=== PATIENT | female | born 1990 | race Caucasian/White ===

== ENCOUNTER 2018-01-06 07:18 | Inpatient (IN) | payer OTHER ==
[2018-01-06] MEDS ORDERED: Tranexamic Acid 1,000 MG in Sodium Chloride 0.9% 100 ML IV PRN (07:58)
[2018-01-06] MEDS ORDERED: Methylergonovine 0.2 MG/1 ML Amp IM PRN (07:58)
[2018-01-06] MEDS ORDERED: Carboprost Tromethamine 250 MCG/1 ML Amp IM PRN (07:58)
[2018-01-06] MEDS ORDERED: Sodium Chloride 0.9% 10 ML Syringe FLUSH PRN (07:58)
[2018-01-06] MEDS ORDERED: Misoprostol 400 MCG (4 X 100 MCG TAB) RECTAL PRN (07:58)
[2018-01-06] MEDS ORDERED: Lactated Ringers 500 ML IV ONE (07:58)
[2018-01-06] MEDS ORDERED: Lidocaine 1% 30 ML SDV INJECT PRN (07:58)
[2018-01-06] MEDS ORDERED: Ondansetron 4 MG/2 ML SDV IV PRN (07:58)
[2018-01-06] MEDS ORDERED: Acetaminophen 325 MG Tab PO PRN (07:58)
[2018-01-06] MEDS ORDERED: Sodium Chloride 0.9% 10 ML SDV IV ONE (08:00)
[2018-01-06] MEDS ORDERED: Bupivacaine 0.75%/D5W 2 ML Amp ONE ×2 (08:00→09:03)
[2018-01-06] MEDS ORDERED: fentaNYL 100 MCG/2 ML SDV ITHECAL ONE (08:00)
[2018-01-06] MEDS ORDERED: Penicillin G Potassium 5 MILLUNITS in Sodium Chloride 0.9% 100 ML IV ONE (08:25)
[2018-01-06] MEDS ORDERED: fentaNYL 100 MCG/2 ML SDV ONE (09:03)
[2018-01-06] MEDS ORDERED: EPINEPHrine 1 MG/ML SDV ONE (09:03)
[2018-01-06] MEDS: Lactated Ringers 1,000 ML IV SCH ×3 (09:22→11:13)
[2018-01-06] MEDS ORDERED: ePHEDrine 50 MG/ML SDV ONE (09:23)
[2018-01-06] MEDS ORDERED: ePHEDrine 50 MG/ML SDV IVPUSH PRN (09:25)
[2018-01-06] MEDS ORDERED: Promethazine 25 MG/ML SDV IM PRN (09:25)
[2018-01-06] MEDS ORDERED: Naloxone 2 MG/2 ML Syringe IVPUSH PRN (09:25)
[2018-01-06] MEDS ORDERED: Ondansetron 4 MG/2 ML SDV IVPUSH PRN (09:25)
[2018-01-06] MEDS ORDERED: Sodium Chloride 0.9% 1,000 ML IV SCH (09:30)
[2018-01-06] MEDS ORDERED: Lactated Ringers 500 ML IV SCH ×2 (09:30)
--- NOTE | 2018-01-06 09:33 | PCM.SN ---
- Free Text/Narrative Note: Intrathecal. sitting position, sterile prep and drape. 1% lidocaine w bicarb for skinwheal to L2 L3 interspace. Introducer, 24 ga pencan x1. Pos CSF, neg heme, neg parasthesia. 0.1 ml 1:1000 pf epi, 0.4 ml pf ns, 20 mcg pf sufenta, 30 mcg pf fentanyl and 6 mg of 0.75% pf bupivacaine injected after CSF aspiration. Pt to L lateral position. Procedure time 0905 to 0953
[2018-01-06] MEDS: Penicillin G Potassium 2.5 MILLUNITS in Sodium Chloride 0.9% 100 ML IV SCH (12:20)
--- NOTE | 2018-01-06 14:44 | HP ---
CHIEF COMPLAINT: "I think my water broke." HISTORY OF PRESENT ILLNESS: A 27-year-old G2, para 0-0-1-0, currently at 38 weeks 1 day gestation based on last menstrual period, presents to Labor and Delivery. At 6:50 a.m., she felt she had peed her pants and had some mild cramping at that time. Small amount of pink discharge on her pad. At this time of interview, she feels like her contractions are getting stronger and locates this pain to the front of her abdomen and "all over." She is feeling pelvic pressure. Denies nausea, headaches, vision changes, right upper quadrant pain, or itching. movement has been good. The patient plans on breast feeding. HISTORY: The patient started care at approximately [address] Julia Reyes and had been very compliant with her visits. Dating is based on definite last menstrual period consistent with an ultrasound done at 20 and 2/7 weeks. Blood type is O positive. Antibody screen is negative. Serial hemoglobin of 14.7, 13.1. Serial platelet counts 187, 166. Rubella immune. RPR nonreactive. Group B streptococcal bacteriuria during . Hepatitis B surface antigen nonreactive. HIV nonreactive. TSH within normal limits. One hour glucose screen is not on record. Flu shot was given in June 2017. Tdap was given on October 18, 2017. complication of visit to the ER due to feeling lightheaded and weak. She had a 24-hour Holter monitor ordered after finding an incomplete right bundle branch block on EKG in the emergency room. She has not had any syncopal episodes since July 02, 2017. PAST OBSTETRICAL HISTORY: First resulted in a spontaneous in January of 2017. No D and C. [place], [place]. PAST MEDICAL HISTORY: None. MEDICATIONS: 1. vitamins. 2. Iron. ALLERGIES: None. PAST SURGICAL HISTORY: Right bunionectomy in 2014. FAMILY HISTORY: Mother is alive, no known conditions. Father is alive, no known medical conditions. Maternal grandparents with cardiovascular disease. Paternal grandparents living with no known medical conditions. SOCIAL HISTORY: to Santos Juares. They live in [place], [place]. 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 This is their first child together. IMMUNIZATIONS: Including flu shot and Tdap. History of chickenpox. REVIEW OF SYSTEMS: Unremarkable. No visual changes or headache. No nausea or vomiting. There is significant edema of hands and feet. No right upper quadrant pain. She feels her baby has been active. She has had no bleeding from the vagina. She has had no syncopal episodes or palpitations. PHYSICAL EXAMINATION: General: The patient looks well and is in no acute distress. Able to walk and ambulate around the room comfortably. Vital Signs: On admission, blood pressure 119/81; respiratory rate of 16 on room air; pulse of 95; temperature Height 5 ft 6 in, Weight 156 lb HEENT: Atraumatic and normocephalic. Mucosal membranes are moist. Lungs: Clear to auscultation bilaterally. Heart: Regular rate and rhythm. S1 and S2. Abdomen: Gravid. Cervix, 4 cm dilated, 60% effaced with vaginal fluid leakage, bleeding after removing hand from cervical exam. LABORATORY DATA: Pending at this time. Nonstress test on arrival shows baseline of 140 with accelerations noted. Contractions appearing approximately 5 minutes apart IMPRESSION: 1. A 27-year-old 2, para 0-0-1-0, at 38 and 1/7 weeks gestation. 2. O positive blood type. Rubella immune. GBS positive for bacteria. 3. Nonstress test reactive. PLAN: The patient will be admitted with routine labor augmentation orders. We will continue to observe the patient closely, possible addition of Pitocin for augmentation of labor. The patient is planning on intrathecal for pain management. Anticipate likely vaginal delivery. The patient understands that complications may arise to change course of labor to involve vacuum- assisted delivery or section. Questions answered. [facility] /[id number] CYNTHIA
[2018-01-06] MEDS ORDERED: Ibuprofen 800 MG Tab ONE (21:50)
[2018-01-06] MEDS ORDERED: Docusate Sodium 100 MG Cap ONE (21:50)
[2018-01-07] MEDS: Penicillin G Potassium 2.5 MILLUNITS in Sodium Chloride 0.9% 100 ML IV SCH ×4 (03:20→19:58)
[2018-01-07] MEDS ORDERED: Acetaminophen 500 MG Tab PO PRN (09:04)
[2018-01-07] MEDS ORDERED: Zolpidem 5 MG Tab PO PRN (09:06)
[2018-01-07] MEDS ORDERED: Bisacodyl 10 MG Supp RECTAL PRN (09:07)
[2018-01-07] MEDS ORDERED: Hydrocortisone 2.5% Crm 30 GM Tube TOP PRN (09:08)
[2018-01-07] MEDS ORDERED: Ondansetron 4 MG/2 ML SDV IV PRN (09:09)
--- NOTE | 2018-01-07 09:52 | PN ---
DATE: 01/07/2018 SUBJECTIVE: Day #1 for a vacuum-assisted vaginal delivery. Mother states she is feeling well. She is ambulating in the room in the hallways and is tolerating a normal diet. She has had a bowel movement and is passing gas. She is but is concerned that her milk is not coming in, and she is not able to produce enough. She has been supplementing her breast-feeds with syringe formula feedings and states those have been going well. Longest time on breast is 10 minutes. She has occasional cramps while . Lochia has decreased in amount. Denies headache, nausea, vision changes, shortness of breath, or back pain. OBJECTIVE: Vital Signs: Temperature 98.2, pulse of 64, blood pressure of 95/62, and respirations 16 with 98% saturation on room air. HEENT: Head normocephalic and atraumatic. Mucosal membranes moist. Lungs: Clear to auscultation bilaterally. No wheeze or rhonchi. Cardiac: Heart is S1, S2. Regular rate and rhythm. No murmur. Abdomen: Soft with normoactive bowel sounds in the upper quadrants. Fundus is firm at umbilicus. LABORATORY DATA: None for today. ASSESSMENT: 1. A 27-year-old G2, now para 1-0-1-1, who is 1 day of vacuum- assisted vaginal delivery over an intact perineum. 2. O positive blood type. Rubella immune. Group B streptococcus positive for bacteria. 3. The patient is . PLAN: Continue routine cares. Expecting discharge home tomorrow. Followup will be with Dr. Reyes in clinic, exact date and times to follow. [facility] /[id number]
[2018-01-07] MEDS: Ibuprofen 600 MG Tab PO SCH ×4 (10:24→22:36)
[2018-01-07] MEDS: Prenatal Multivitamin with Calcium/Folic Acid/Iron Tab PO SCH (10:24)
[2018-01-07] MEDS: Docusate Sodium 100 MG Cap PO SCH ×2 (10:25→20:56)
[2018-01-08] MEDS: Ibuprofen 600 MG Tab PO SCH (08:19)
[2018-01-08] MEDS: Docusate Sodium 100 MG Cap PO SCH (08:20)
[2018-01-08] MEDS: Prenatal Multivitamin with Calcium/Folic Acid/Iron Tab PO SCH (08:20)
--- NOTE | 2018-01-08 23:59 | PCM.DCSUM1 ---
Discharge Summary - Hospital Course Free Text/Narrative:: Bertha is a 27yo WF who presented @ 38w1d with SROM and onset cxns. GBS bacturia was known and PCN started for prophylaxis. she progressed in labor and subsequently delivered a viable female wieghing 6lb 3oz 2810g @ 1455 on 01-06-18by VAVD with APGARs 6 & 9. HPI Initial Comments: after her VAVD, the course was uneventful. VSS afebrile. bowel and bladder function ok. eating, ambulating, voiding well. nursing. fundus firm. flow decreasing. ready for discharge 01-08-18 hmb Brief History: see episode and problem list in EPIC. hmb - Discharge Data Discharge Date: 01/08/18 Discharge Disposition: Home, Self-Care 01 Condition: Good - Discharge Diagnosis/Problem(s) (1) Vacuum extraction, delivered, current hospitalization SNOMED Code(s): 461979228 ICD Code: O66.5 - ATTEMPTED APPLICATION OF VACUUM EXTRACTOR AND FORCEPS Status: Acute (2) Group B streptococcal bacteriuria SNOMED Code(s): 47262379 ICD Code: R82.71 - BACTERIURIA Status: Acute Problem Details: Group B strep bacturia. Penicillin prophylaxis in labor provided. (3) Blood type O+ SNOMED Code(s): 995343303 ICD Code: Z67.40 - TYPE O BLOOD, RH POSITIVE Status: Acute (4) Mother currently breast-feeding SNOMED Code(s): 032742188 ICD Code: YED2641 - Status: Acute - Patient Summary/Data Operative Procedure(s) Performed: VAVD Hospital Course: uneventful course as discussed/noted. hmb - Patient Instructions Diet: Usual Diet as Tolerated Activity: No Strenuous Activities Driving: May Drive Today Showering/Bathing: May Shower Wound/Incision Care: Keep Operative Site/Wound Site Clean and Dry Notify Provider of: Fever, Increased Pain, Swelling and Redness, Nausea and/or Vomiting - Discharge Plan Patient Handouts: Baby Blues, Care After Vaginal Delivery - Discharge Summary/Plan Comment DC Time >30 min.: No - General Info Date of Service: 01/08/18 Admission Dx/Problem (Free Text: 38w1d 27yo WF with onset labor and SROM GBS + bacturia---on PCN A+ blood type Rubella immune Subjective Update: SROM, onset cxns, primip, 38w1d. GBS bacturia, started on PCN prophylaxis see EPIC episode for further details. Admitted and proceeded to VAVD viable 6lb 3oz female without complication see delivery note for details. course uneventful Afebrile, VSS flow decreasing, fundus firm nursing eating, voiding ambulating well. ready for discharge 01-08-18 hmb Functional Status: Reports: Pain Controlled, Tolerating Diet, Ambulating, Urinating - Review of Systems General: Reports: No Symptoms HEENT: Reports: No Symptoms Pulmonary: Reports: No Symptoms Cardiovascular: Reports: No Symptoms Gastrointestinal: Reports: No Symptoms Genitourinary: Reports: Other (normal status) Musculoskeletal: Reports: No Symptoms Skin: Reports: No Symptoms Neurological: Reports: No Symptoms Psychiatric: Reports: No Symptoms - Patient Data Vitals - Most Recent: Last Vital Signs Temp 97.8 F 01/08/18 08:00 Pulse 57 L 01/07/18 20:00 Resp 20 01/08/18 08:00 BP 99/55 L 01/08/18 08:00 Pulse Ox 97 01/08/18 08:00 Weight - Most Recent: 156 lb I&O - Last 24 hours: Intake & Output 01/08/18 01/08/18 01/09/18 14:59 22:59 06:59 Intake Total 600 Balance 600 Lab Results - Last 24 hrs: Laboratory Results - last 24 hr 01/08/18 Range/Units 06:14 Hgb 12.4 D (12.0-16.0) g/dL Hct 37.2 (37.0-47.0) % Med Orders - Current: Current Medications Discontinued Medications Acetaminophen (Tylenol) 650 mg PO Q4H PRN PRN Reason: Pain (Mild 1-3) and fever Last Admin: 01/07/18 08:22 Dose: 650 mg Acetaminophen (Tylenol Extra Strength) 1,000 mg PO Q8H PRN PRN Reason: Pain/Fever Last Admin: 01/07/18 15:58 Dose: 1,000 mg Bisacodyl (Dulcolax) 10 mg RECTAL ASDIRECTED PRN PRN Reason: CONSTIPATION Bupivacaine HCl/Dextrose (Marcaine 0.75% Spinal) Confirm Administered Dose 2 ml .ROUTE .STK-MED ONE Stop: 01/06/18 09:04 Last Admin: 01/07/18 03:20 Dose: Not Given Bupivacaine HCl/Dextrose (Marcaine 0.75% Spinal) 0.8 ml .XX .STK-MED ONE Stop: 01/06/18 08:01 Carboprost Tromethamine (Hemabate Ds) 250 mcg IM ASDIRECTED PRN PRN Reason: HEMORRHAGE Docusate Sodium (Colace) Confirm Administered Dose 100 mg .ROUTE .STK-MED ONE Stop: 01/06/18 21:51 Last Admin: 01/07/18 03:21 Dose: Not Given Docusate Sodium (Colace) 100 mg PO BID [facility] Last Admin: 01/08/18 08:20 Dose: 100 mg Ephedrine Sulfate (Ephedrine Sulfate) Confirm Administered Dose 50 mg .ROUTE .STK-MED ONE Stop: 01/06/18 09:24 Last Admin: 01/07/18 03:20 Dose: Not Given Ephedrine Sulfate (Ephedrine Sulfate) 5 mg IVPUSH Q5M PRN PRN Reason: See Label Comments Epinephrine HCl (Adrenalin) Confirm Administered Dose 1 mg .ROUTE .STK-MED ONE Stop: 01/06/18 09:04 Last Admin: 01/07/18 03:20 Dose: Not Given Famotidine (Pepcid) 20 mg IVPUSH ONETIME ONE Stop: 01/06/18 10:58 Last Admin: 01/06/18 11:05 Dose: 20 mg Fentanyl (Sublimaze) Confirm Administered Dose 100 mcg .ROUTE .STK-MED ONE Stop: 01/06/18 09:04 Last Admin: 01/07/18 03:20 Dose: Not Given Fentanyl (Sublimaze) 30 mcg ITHECAL .STK-MED ONE Stop: 01/06/18 08:01 Hydrocortisone (Hydrocortisone 2.5% Crm) 0 gm TOP ASDIRECTED PRN PRN Reason: HEMORRHOIDS Lactated Ringer's (Ringers, Lactated) 500 mls @ 999 mls/min IV .BOLUS ONE Stop: 01/06/18 07:59 Last Admin: 01/06/18 08:50 Dose: 999 mls/min Lactated Ringer's (Ringers, Lactated) 1,000 mls @ 125 mls/hr IV ASDIRECTED YADIRA Last Admin: 01/06/18 11:13 Dose: 125 mls/hr Tranexamic Acid 1,000 mg/ (Sodium Chloride) 110 mls @ 660 mls/hr IV ONETIME PRN PRN Reason: Bleeding Penicillin G Potassium 5 (millunits/ Sodium Chloride) 100 mls @ 200 mls/hr IV ONETIME ONE Stop: 01/06/18 08:54 Last Admin: 01/06/18 08:50 Dose: 200 mls/hr Penicillin G Potassium 2.5 (millunits/ Sodium Chloride) 100 mls @ 200 mls/hr IV Q4H [facility] Last Admin: 01/07/18 19:58 Dose: Not Given Lactated Ringer's (Ringers, Lactated) 500 mls @ 999 mls/hr IV SEECOMMENT [facility] Lactated Ringer's (Ringers, Lactated) 500 mls @ 999 mls/hr IV .BOLUS [facility] Sodium Chloride (Normal Saline) 1,000 mls @ 500 mls/hr IV .BOLUS [facility] Ibuprofen (Motrin) Confirm Administered Dose 800 mg .ROUTE .STK-MED ONE Stop: 01/06/18 21:51 Last Admin: 01/07/18 03:21 Dose: Not Given Ibuprofen (Motrin) 600 mg PO QIDPCANDBED [facility] Last Admin: 01/08/18 08:19 Dose: 600 mg Lidocaine HCl (Xylocaine-Mpf 1%) 10 ml INJECT ASDIRECTED PRN PRN Reason: Perineal Repair Lidocaine HCl (Xylocaine-Mpf 1%) 1 ml .XX .STK-MED ONE Stop: 01/06/18 08:01 Methylergonovine Maleate (Methergine) 0.2 mg IM ASDIRECTED PRN PRN Reason: Hemorrhage Misoprostol (Cytotec) 800 mcg RECTAL ASDIRECTED PRN PRN Reason: Hemorrhage Naloxone HCl (Narcan) 0.1 mg IVPUSH SEECOMMENT PRN PRN Reason: Respiratory Depression Ondansetron HCl (Zofran) 4 mg IV Q4H PRN PRN Reason: Nausea/Vomiting Last Admin: 01/06/18 09:30 Dose: 4 mg Ondansetron HCl (Zofran) 4 mg IVPUSH Q4H PRN PRN Reason: Nausea/Vomiting Ondansetron HCl (Zofran) 4 mg IV Q4H PRN PRN Reason: Nausea/Vomiting Prenat Multivit/[place]/Iron/Folic Ac ( Plus Iron) 1 each PO DAILY YADIRA Last Admin: 01/08/18 08:20 Dose: 1 each Promethazine HCl (Phenergan) 12.5 mg IM Q6H PRN PRN Reason: Nausea/Vomiting Sodium Bicarbonate (Sodium Bicarbonate 4.2%) Confirm Administered Dose 5 meq .ROUTE .STK-MED ONE Stop: 01/06/18 09:05 Last Admin: 01/07/18 03:20 Dose: Not Given Sodium Bicarbonate (Sodium Bicarbonate 4.2%) 0.5 meq .XX .STK-MED ONE Stop: 01/06/18 08:01 Sodium Chloride (Saline Flush) 10 ml FLUSH ASDIRECTED PRN PRN Reason: Keep Vein Open Sodium Chloride (Normal Saline) 1 ml IV .STK-MED ONE Stop: 01/06/18 08:01 Sufentanil Citrate (Sufenta) Confirm Administered Dose 50 mcg .ROUTE .STAquaporin-MED ONE Stop: 01/06/18 09:04 Last Admin: 01/07/18 03:20 Dose: Not Given Sufentanil Citrate (Sufenta) 20 mcg ITHECAL .STK-MED ONE Stop: 01/06/18 08:01 Zolpidem Tartrate (Ambien) 10 mg PO BEDTIME PRN PRN Reason: INSOMNIA - Exam General: Reports: Alert, Oriented HEENT: Reports: Pupils Equal, Pupils Reactive, EOMI, Mucous Membr. Moist/[place] Neck: Reports: Supple Lungs: Reports: Clear to Auscultation, Normal Respiratory Effort Cardiovascular: Reports: Regular Rate, Regular Rhythm GI/Abdominal Exam: Normal Bowel Sounds, Soft, Non-Tender (Female) Exam: Normal External Exam, Enlarged Uterus (fundus firm/normal involuting ), Vaginal Bleeding (normal lochia flow) Rectal (Female) Exam: Deferred Back Exam: Reports: Normal Inspection, Full Range of Motion Extremities: Normal Inspection, Normal Range of Motion, Non-Tender, No Pedal Edema, Normal Capillary Refill Skin: Reports: Warm, Dry, Intact Wound/Incisions: Reports: Healing Well Neurological: Reports: No New Focal Deficit Psy/Mental Status: Reports: Alert, Normal Affect, Normal Mood Discharge Operative/Procedures - Procedures Performed LP Indication: CSF analysis Arterial Line Indication: hemodynamic monitoring Chest Tube Indication: pneumothorax Thoracentesis Indication: pleural effusion Paracentesis Indication: ascites Operations/Procedure Comment: CASEYD
--- NOTE | 2018-01-09 00:12 | PCM.DEL ---
L & D Note - General Info Date of Service: 01/06/18 (time of 1455) Mother's Due Date: 01/19/18 - Delivery Note Labor: Spontaneous Delivery Outcome: Livebirth Infant Delivery Method: Spontaneous Vaginal Delivery-Single Infant Delivery Mode: Vacuum Extraction Presentation: Left Occiput Posterior (LOP) Nuchal Cord: Present, Reduced Prep: Povidone-Iodine (Betadine Anesthesia Type: Intrathecal Amniotic Fluid Description: Clear Episiotomy Type: None Laceration: None Placenta: Intact Cord: 3 Vessels Estimated Blood Loss: 250 Resuscitation Needed: Yes : Suctioned, Bulb Syringe, Stimulated, Warmed, Pendroy Used, Warmer Used Provider: Julia Reyes Score 1 min: 6 Score 5 min: 9 Second Stage Interventions: Reports: Laboring Down, Pushing Effectively, Pushing , Feet in Foot Rests Delivery Comments (Free Text/Narrative):: vaginal delivery in [place] with foot pedals baby in LOP, vacuum extraction, nuchal cord X 1, reduced. cord also around body and extremity suctioned and stimulated, then taken to warmer for further drying, suctioning and stimulating with good response. APGARs 6 & 9 cord clamped X 2 and cut by FOB. cord blood sample obtained. 3VC noted. placenta delivered by expression and noted to be intact/complete. pitocin influsion per protocol EBL 250, uterus firming up nicely. perineum intact. mom and baby doing well. baby to mom's chest for skin to skin contact for bonding/nursing. routine cares and orders. hmb Vacuum Extractor Progress Note - Alternative Labor Strategies Considered Alternative Labor Strategies Considered:: Reports: Yes Strategies Considered:: Reports: Contraction Intensity Adequate, Position Changes Used to Facilitate Rotation & Descent, Empty Bladder Indications Considered:: Reports: Yes Indications:: Reports: Prolonged 2nd Stage, Shortening of 2nd Stage for Maternal Benefit, Suspicion of Immediate or Potential Compromise - Patient Prepared Patient Prepared:: Reports: Yes Informed Consent:: Reports: Verbal Risks: Reports: Yes Anesthesia/Analgesia Adequate:: Reports: Yes - Probability of Success High Probability of Success:: Reports: Yes Weight Estimated:: Reports: AGA Patient Diabetic:: Reports: No Pelvis Adequate:: Reports: Yes Position:: LOP Asynclitic:: Reports: No - Application Time Maximum Application Time & Number of Pop-Offs Predetermined:: Reports: Yes Total Application Time (min): *max=20min: 8 Number of Times Cup Disengaged:: 0 Type of Vacuum Used:: Reports: Low profile Vacuum Extraction: Successful Comments:: Kiwi regular mushroom cup placed for one cxn by Isela Schwarz MS3, but would not hold suction, due to position of head; therefore, the low profile vacuum was placed by me with LOP position and held well, completing delivery with total time of <8 mins and no pop offs or complications. hmb - Exit Strategy Exit strategy available:: Reports: Yes and resuscitation teams readily available:: Reports: Yes Consult as indicated:: consult not indicated - General Info Date of Service: 01/06/18 Admission Dx/Problem (Free Text): 38w1d 27yo WF with onset labor and SROM GBS + bacturia---on PCN A+ blood type Rubella immune Subjective Update: SROM, onset cxns, primip, 38w1d. GBS bacturia, started on PCN prophylaxis see EPIC episode for further details. - Review of Systems General: Reports: No Symptoms HEENT: Reports: No Symptoms Pulmonary: Reports: No Symptoms Cardiovascular: Reports: No Symptoms Gastrointestinal: Reports: No Symptoms Genitourinary: Reports: Other (as noted per admit) Musculoskeletal: Reports: No Symptoms Skin: Reports: No Symptoms Neurological: Reports: No Symptoms Psychiatric: Reports: No Symptoms - Patient Data Vitals - Most Recent: Last Vital Signs Temp 97.8 F 01/08/18 08:00 Pulse 57 L 01/07/18 20:00 Resp 20 01/08/18 08:00 BP 99/55 L 01/08/18 08:00 Pulse Ox 97 01/08/18 08:00 Weight - Most Recent: 156 lb I&O - Last 24 Hours: Intake & Output 01/08/18 01/08/18 01/09/18 14:59 22:59 06:59 Intake Total 600 Balance 600 Lab Results Last 24 Hours: Laboratory Results - last 24 hr 01/08/18 Range/Units 06:14 Hgb 12.4 D (12.0-16.0) g/dL Hct 37.2 (37.0-47.0) % Med Orders - Current: Current Medications Discontinued Medications Acetaminophen (Tylenol) 650 mg PO Q4H PRN PRN Reason: Pain (Mild 1-3) and fever Last Admin: 01/07/18 08:22 Dose: 650 mg Acetaminophen (Tylenol Extra Strength) 1,000 mg PO Q8H PRN PRN Reason: Pain/Fever Last Admin: 01/07/18 15:58 Dose: 1,000 mg Bisacodyl (Dulcolax) 10 mg RECTAL ASDIRECTED PRN PRN Reason: CONSTIPATION Bupivacaine HCl/Dextrose (Marcaine 0.75% Spinal) Confirm Administered Dose 2 ml .ROUTE .STK-MED ONE Stop: 01/06/18 09:04 Last Admin: 01/07/18 03:20 Dose: Not Given Bupivacaine HCl/Dextrose (Marcaine 0.75% Spinal) 0.8 ml .XX .STK-MED ONE Stop: 01/06/18 08:01 Carboprost Tromethamine (Hemabate Ds) 250 mcg IM ASDIRECTED PRN PRN Reason: HEMORRHAGE Docusate Sodium (Colace) Confirm Administered Dose 100 mg .ROUTE .STK-MED ONE Stop: 01/06/18 21:51 Last Admin: 01/07/18 03:21 Dose: Not Given Docusate Sodium (Colace) 100 mg PO BID YADIRA Last Admin: 01/08/18 08:20 Dose: 100 mg Ephedrine Sulfate (Ephedrine Sulfate) Confirm Administered Dose 50 mg .ROUTE .STK-MED ONE Stop: 01/06/18 09:24 Last Admin: 01/07/18 03:20 Dose: Not Given Ephedrine Sulfate (Ephedrine Sulfate) 5 mg IVPUSH Q5M PRN PRN Reason: See Label Comments Epinephrine HCl (Adrenalin) Confirm Administered Dose 1 mg .ROUTE .STK-MED ONE Stop: 01/06/18 09:04 Last Admin: 01/07/18 03:20 Dose: Not Given Famotidine (Pepcid) 20 mg IVPUSH ONETIME ONE Stop: 01/06/18 10:58 Last Admin: 01/06/18 11:05 Dose: 20 mg Fentanyl (Sublimaze) Confirm Administered Dose 100 mcg .ROUTE .STK-MED ONE Stop: 01/06/18 09:04 Last Admin: 01/07/18 03:20 Dose: Not Given Fentanyl (Sublimaze) 30 mcg ITHECAL .STK-MED ONE Stop: 01/06/18 08:01 Hydrocortisone (Hydrocortisone 2.5% Crm) 0 gm TOP ASDIRECTED PRN PRN Reason: HEMORRHOIDS Lactated Ringer's (Ringers, Lactated) 500 mls @ 999 mls/min IV .BOLUS ONE Stop: 01/06/18 07:59 Last Admin: 01/06/18 08:50 Dose: 999 mls/min Lactated Ringer's (Ringers, Lactated) 1,000 mls @ 125 mls/hr IV ASDIRECTED YADIRA Last Admin: 01/06/18 11:13 Dose: 125 mls/hr Tranexamic Acid 1,000 mg/ (Sodium Chloride) 110 mls @ 660 mls/hr IV ONETIME PRN PRN Reason: Bleeding Penicillin G Potassium 5 (millunits/ Sodium Chloride) 100 mls @ 200 mls/hr IV ONETIME ONE Stop: 01/06/18 08:54 Last Admin: 01/06/18 08:50 Dose: 200 mls/hr Penicillin G Potassium 2.5 (millunits/ Sodium Chloride) 100 mls @ 200 mls/hr IV Q4H [facility] Last Admin: 01/07/18 19:58 Dose: Not Given Lactated Ringer's (Ringers, Lactated) 500 mls @ 999 mls/hr IV SEECOMMENT YADIRA Lactated Ringer's (Ringers, Lactated) 500 mls @ 999 mls/hr IV .BOLUS YADIRA Sodium Chloride (Normal Saline) 1,000 mls @ 500 mls/hr IV .BOLUS [facility] Ibuprofen (Motrin) Confirm Administered Dose 800 mg .ROUTE .STK-MED ONE Stop: 01/06/18 21:51 Last Admin: 01/07/18 03:21 Dose: Not Given Ibuprofen (Motrin) 600 mg PO QIDPCANDBED [facility] Last Admin: 01/08/18 08:19 Dose: 600 mg Lidocaine HCl (Xylocaine-Mpf 1%) 10 ml INJECT ASDIRECTED PRN PRN Reason: Perineal Repair Lidocaine HCl (Xylocaine-Mpf 1%) 1 ml .XX .STK-MED ONE Stop: 01/06/18 08:01 Methylergonovine Maleate (Methergine) 0.2 mg IM ASDIRECTED PRN PRN Reason: Hemorrhage Misoprostol (Cytotec) 800 mcg RECTAL ASDIRECTED PRN PRN Reason: Hemorrhage Naloxone HCl (Narcan) 0.1 mg IVPUSH SEECOMMENT PRN PRN Reason: Respiratory Depression Ondansetron HCl (Zofran) 4 mg IV Q4H PRN PRN Reason: Nausea/Vomiting Last Admin: 01/06/18 09:30 Dose: 4 mg Ondansetron HCl (Zofran) 4 mg IVPUSH Q4H PRN PRN Reason: Nausea/Vomiting Ondansetron HCl (Zofran) 4 mg IV Q4H PRN PRN Reason: Nausea/Vomiting Prenat Multivit/Gold Marker/Iron/Folic Ac ( Plus Iron) 1 each PO DAILY YADIRA Last Admin: 01/08/18 08:20 Dose: 1 each Promethazine HCl (Phenergan) 12.5 mg IM Q6H PRN PRN Reason: Nausea/Vomiting Sodium Bicarbonate (Sodium Bicarbonate 4.2%) Confirm Administered Dose 5 meq .ROUTE .STK-MED ONE Stop: 01/06/18 09:05 Last Admin: 01/07/18 03:20 Dose: Not Given Sodium Bicarbonate (Sodium Bicarbonate 4.2%) 0.5 meq .XX .STK-MED ONE Stop: 01/06/18 08:01 Sodium Chloride (Saline Flush) 10 ml FLUSH ASDIRECTED PRN PRN Reason: Keep Vein Open Sodium Chloride (Normal Saline) 1 ml IV .STK-MED ONE Stop: 01/06/18 08:01 Sufentanil Citrate (Sufenta) Confirm Administered Dose 50 mcg .ROUTE .STK-MED ONE Stop: 01/06/18 09:04 Last Admin: 01/07/18 03:20 Dose: Not Given Sufentanil Citrate (Sufenta) 20 mcg ITHECAL .STK-MED ONE Stop: 01/06/18 08:01 Zolpidem Tartrate (Ambien) 10 mg PO BEDTIME PRN PRN Reason: INSOMNIA - Exam General: Alert, Oriented HEENT: Pupils Equal, Pupils Reactive, EOMI, Mucous Membr. Moist/[place] Neck: Supple Lungs: Clear to Auscultation, Normal Respiratory Effort Cardiovascular: Regular Rate, Regular Rhythm GI/Abdominal Exam: Normal Bowel Sounds, Soft, Non-Tender, No Organomegaly, No Distention, No Abnormal Bruit, No Mass, Pelvis Stable (Female) Exam: Enlarged Uterus, Vaginal Bleeding, Other (perineum intact) Back Exam: Normal Inspection, Full Range of Motion Extremities: Normal Inspection, Normal Range of Motion, Non-Tender, Normal Capillary Refill, Pedal Edema (trace) Skin: Warm, Dry, Intact Wound/Incisions: Healing Well Neurological: No New Focal Deficit Psy/Mental Status: Alert, Normal Affect, Normal Mood - Problem List & Annotations (1) Vacuum extraction, delivered, current hospitalization SNOMED Code(s): 917108669 Code(s): O66.5 - ATTEMPTED APPLICATION OF VACUUM EXTRACTOR AND FORCEPS Status: Acute (2) Group B streptococcal bacteriuria SNOMED Code(s): 57914870 Code(s): R82.71 - BACTERIURIA Status: Acute (3) Blood type O+ SNOMED Code(s): 726449365 Code(s): Z67.40 - TYPE O BLOOD, RH POSITIVE Status: Acute (4) Mother currently breast-feeding SNOMED Code(s): 453530376 Code(s): OSE9926 - Status: Acute (5) Rubella immune SNOMED Code(s): 541038152 Code(s): Z78.9 - OTHER SPECIFIED HEALTH STATUS Status: Acute (6) Primiparity SNOMED Code(s): 95772266 Code(s): Z34.00 - ENCNTR FOR SUPRVSN OF NORMAL FIRST , UNSP TRIMESTER Status: Acute - Problem List Review Problem List Initiated/Reviewed/Updated: Yes - My Orders Last 24 Hours: My Active Orders 01/08/18 10:14 Ready for Discharge [RC] PER UNIT ROUTINE - Plan Plan:: Assessment/Plan: 27yoWF G2 now P1011 VAVD viable female on 01-06-2018 on 1455 APGARs 6 & 9 weight 6lb 3oz/2810g GBS + bacturia, PCN prophylaxis Rubella immune blood type A+ nuchal and body cord entanglement Routine care b
== END 2018-01-08 11:55 | disposition home or self-care (01) | DRG 775 ==
LOC: DL.OBCHECK 07:18 → DL.OB 07:59 → OBSVTOIN 14:55 → DL.MS 01-07 07:33
PROVIDERS: ADMIT Family Medicine; ATTEND Family Medicine
PROC: 10D07Z6 Extraction of Products of Conception, Vacuum, Via Natural or Artificial Opening (ICD-10-PCS; principal; 2018-01-06)
PROC: 00HU33Z Insertion of Infusion Device into Spinal Canal, Percutaneous Approach (ICD-10-PCS; 2018-01-06)
PROC: 3E0R3BZ Introduction of Anesthetic Agent into Spinal Canal, Percutaneous Approach (ICD-10-PCS; 2018-01-06)
DX: O75.89 Other specified complications of labor and delivery (principal); Z37.0 Single live birth; Z3A.38 38 weeks gestation of pregnancy; R82.71 Bacteriuria
CPT/HCPCS: 36415; 85014; 85018; 85027; A9270-GY; J2405; J2540; J3010; J3490; J7050; J7120

== ENCOUNTER 2019-12-04 05:22 | Inpatient (IN) | payer OTHER ==
[2019-12-04] MEDS ORDERED: Lactated Ringers 1,000 ML IV SCH (06:15)
[2019-12-04] MEDS ORDERED: Penicillin G Potassium 5 MILLUNITS in Sodium Chloride 0.9% 100 ML IV ONE (06:26)
[2019-12-04] MEDS: Lactated Ringers 1,000 ML IV SCH ×4 (06:40→16:41)
[2019-12-04] MEDS: Ondansetron 4 MG/2 ML SDV IVPUSH PRN ×2 (06:51→07:56)
[2019-12-04] MEDS ORDERED: Famotidine 20 MG/2 ML SDV IVPUSH ONE (07:03)
[2019-12-04] MEDS ORDERED: fentaNYL 100 MCG/2 ML SDV ONE (07:04)
[2019-12-04] MEDS ORDERED: Sodium Bicarbonate 4.2% 2.5 MEQ/5 ML SDV ONE ×2 (07:05→14:07)
[2019-12-04] MEDS ORDERED: Famotidine 20 MG/2 ML SDV ONE (07:05)
[2019-12-04] MEDS ORDERED: EPINEPHrine 1 MG/1 ML Amp ONE ×2 (07:05→14:07)
--- NOTE | 2019-12-04 07:32 | PCM.SN ---
- Free Text/Narrative Note: Intrathecal. Sitting position, sterile prep and drape. 1 % lidocaine w bicarb for skinwheal to L2 L3 interspace Introducer, 24 ga pencan x 1. Pos CSF, neg heme, neg parasthesia. 0.1 ml pf 1:1000 epi, 20 mcg pf sufenta, 30 mcg pf fentanyl, 0.4 ml pf NS and 6 mg of 0.75% pf marcaine injected after CSF aspiration. Pt to L lateral [position. Procedure time 0700 to 0730
[2019-12-04] MEDS ORDERED: ePHEDrine 50 MG/ML SDV ONE (08:04)
[2019-12-04] MEDS ORDERED: Oxytocin/Normal Saline 30 UNIT/500 ML BAG ONE (08:21)
[2019-12-04] MEDS ORDERED: Oxytocin/Normal Saline 60 UNIT/1,000 ML BAG ONE (09:06)
[2019-12-04] MEDS ORDERED: Oxytocin/Normal Saline 30 UNIT/500 ML BAG IV SCH (10:20)
[2019-12-04] MEDS ORDERED: Carboprost Tromethamine 250 MCG/1 ML Amp IM PRN (10:33)
[2019-12-04] MEDS ORDERED: Misoprostol 400 MCG (4 X 100 MCG TAB) RECTAL PRN (10:33)
[2019-12-04] MEDS ORDERED: ePHEDrine 50 MG/ML SDV IVPUSH PRN (10:33)
[2019-12-04] MEDS ORDERED: diphenhydrAMINE 50 MG/ML SDV IVPUSH PRN (10:33)
[2019-12-04] MEDS ORDERED: Methylergonovine 0.2 MG/1 ML Amp IM PRN (10:33)
[2019-12-04] MEDS ORDERED: Naloxone 2 MG/2 ML Syringe IVPUSH PRN (10:33)
[2019-12-04] MEDS ORDERED: Tranexamic Acid 1,000 MG in Sodium Chloride 0.9% 100 ML IV PRN (10:33)
[2019-12-04] MEDS ORDERED: Acetaminophen 325 MG Tab PO PRN (10:33)
[2019-12-04] MEDS ORDERED: fentaNYL 100 MCG/2 ML SDV IVPUSH PRN ×2 (10:52→14:00)
[2019-12-04] MEDS ORDERED: Penicillin G Potassium 2.5 MILLUNITS in Sodium Chloride 0.9% 100 ML IV SCH (11:00)
[2019-12-04] MEDS ORDERED: ceFAZolin 2 GM in Premix Bag 1 BAG IV ONE (11:47)
[2019-12-04] MEDS ORDERED: Midazolam 1 MG/ML 2 ML SDV IV ONE (12:35)
[2019-12-04] MEDS ORDERED: ePHEDrine 50 MG/ML SDV IV ONE (12:35)
[2019-12-04] MEDS ORDERED: Ketorolac 30 MG/ML SDV IVPUSH ONE (12:35)
[2019-12-04] MEDS ORDERED: Succinylcholine 200 MG/10 ML MDV IV ONE (12:35)
[2019-12-04] MEDS ORDERED: fentaNYL 250 MCG/5 ML SDV IV ONE (12:35)
[2019-12-04] MEDS ORDERED: Lactated Ringers 1,000 ML IV ONE (12:35)
[2019-12-04] MEDS ORDERED: Propofol 200 MG/20 ML SDV IV ONE (12:35)
[2019-12-04] MEDS: Simethicone 80 MG Tab.Chew PO SCH ×3 (13:57→20:20)
[2019-12-04] MEDS ORDERED: fentaNYL 100 MCG/2 ML SDV ITHECAL ONE (14:07)
[2019-12-04] MEDS: HYDROmorphone 1 MG/ML Syringe IVPUSH PRN ×3 (15:01→20:21)
--- NOTE | 2019-12-04 15:01 | HP ---
HISTORY OF PRESENT ILLNESS: This delightful 29-year-old G3, P1-0-1-1 who presented at 39-4/7 weeks gestation in active labor. She was 6 cm with a bulging bag on admit and having somewhat irregular contractions. She is a known group B streptococcus positive and in fact had positive group B streptococcus bacteria on her first visit. Therefore, penicillin prophylaxis was planned and started. No vaginal bleeding or fluid leakage on admit. The baby was active. Please see nursing notes on admit. The NST was reactive. CARE: She had excellent care in the clinic and is planning a vaginal delivery. PAST OBSTETRICAL HISTORY: Included 1 spontaneous AB and a prior vaginal delivery on 01/06/2018 at 38-1/7 weeks of 6 pounds 3 ounces . She is O-positive blood type. Rubella immune. Her laboratories were unremarkable with the exception of the group B streptococcus bacteria. Platelet counts were within normal limits during her at 202 and 159; however, admit platelet count was just noted to be low at 114. ALLERGIES: None. MEDICATIONS: vitamin. PAST MEDICAL HISTORY: Noted on her OB chart. FAMILY HISTORY: Noted on her OB chart. SOCIAL HISTORY: Nonsmoker. No history of alcohol abuse. , living in [place]. One daughter as noted. 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 works for [employer]. REVIEW OF SYSTEMS: Otherwise, unremarkable. IMMUNIZATIONS: She is up-to-date for immunizations including flu shot and Tdap. OBJECTIVE: Vital Signs: Within normal limits. Blood pressure is 92/48 on arrival with a pulse of 78. HEENT: Negative. Lungs: Clear. Heart: Sounds regular. Abdomen: Gravid. Cervix is 6 cm on arrival with a bulging bag of fluid. On my arrival, it is 9+ with a bulging bag of fluid. This is ruptured with a copious amount of clear fluid. However, shortly after that, she began to have significant bright red bleeding. The baby is in a posterior position with LOP position. She has no significant edema. heart tones are down in the 70s at times. They do recover intermittently at times with maternal repositioning and oxygen. However, due to the increasing number of active bright red bleeding, we did elect to set her up for a trial of vacuum. We also had the OR staff come in for standby. We did have her attempt pushing. However, she was unable to bring the baby's head down significantly. A trial of both low profile and a Kiwi vacuum were unsuccessful in rotating the baby's head or bringing the baby down significantly. Baby continues to have a bradycardia, though does at times have good recovery. We continued to lose a significant amount of blood, and I suspect she is having an active abruption. Therefore, we will go to emergency section after discussion with the patient and her . IMPRESSION: 29-year-old G3, P1-0-1-1 at 39-4/7 weeks gestation who presented in active labor and now appears to be having placental abruption without ability to rapidly deliver her vaginally. Persistent left occiput posterior presentation. bradycardia and significant concern for intolerance. Gestational thrombocytopenia with a platelet count of 114 on admit. O positive blood type. GBS positive receiving prophylaxis PLAN: Reviewed the risks of the with them including but not limited to hemorrhage with possible need of blood transfusion with its inherent risks. Possible infection with the need of antibiotics, injury to the fetus or maternal organs, and reaction to anesthesia, etc. All their questions were answered. They wished to proceed with urgent/emergent section. She will likely need general anesthesia as discussed. Dr. Sow will be assisting. MODL /[id number] CYNTHIA
--- NOTE | 2019-12-04 15:46 | OR ---
DATE: 12/04/2019 PREOPERATIVE DIAGNOSES: 1. 29-year-old 3, para 1-0-1-1 with urgent need for section for suspected placental abruption. 2. Persistent Left occiput posterior position. 3. intolerance to labor situation and failure to descend. 4. Group B streptococcus positive, on penicillin prophylaxis. 5. O-positive blood type. 6. Gestational thrombocytopenia. 7. Rubella immune. POSTOPERATIVE DIAGNOSES: 1. 29-year-old 3, now para 2-0-1-2 at 39-4/7 weeks gestation. 2. Confirmed Left occiput posterior position. 3. intolerance to labor situation and failure to descend. 4. Group B streptococcus positive, on penicillin prophylaxis. 5. O-positive blood type. 6. Gestational thrombocytopenia. 7. Rubella immune. FINDINGS: Placental abruption confirmed. Persistent left occiput posterior position. A viable male infant born at 9:22 a.m. with scores of 2, 4, and 8 at one, five, and ten minutes respectively. Group B streptococcus positive. Gestational thrombocytopenia. O-positive blood type. Rubella immune. PROCEDURE: Primary low transverse section. SURGEON: Julia Reyes MD STOCK SHEETS CLEANER INSPECTOR: Emma Lquue MD ANESTHESIA: General due to urgent status. PROCEDURE IN DETAIL: This 29-year-old white female G3, P1-0-1-1 had presented in labor who subsequently progressed to nearly complete dilation, however, due to the status with persistent bradycardia and active bright red vaginal bleeding and suspected placental abruption, the baby's head had come down to 0 to +2 station with pushing, and immediate delivery was necessary. The baby was in a persistent LOP position. We called for the OR team to come in and while waiting attempted vacuum delivery vaginally in the delivery room. However, we were unable to assist with any significant descent of the head. Therefore, after discussion with the parents, went to emergent/urgent delivery. See my notes for further details. The patient was brought down to the OR suite and urgent expedited prepping and draping was carried out. She had excellent intrathecal block, and we did start her skin incision with a scalpel while Anesthesia was placing her general anesthesia. This was carried down through the subcutaneous tissue to the fascia, which was divided transversely. Superior and inferior fascial flaps were developed with sharp and blunt dissection. The rectus was divided in the midline, and the peritoneum was entered bluntly and divided and opened until we had excellent visualization of the lower uterine segment. Rupert retractor placed. A stab incision was made into the lower uterine segment with a scalpel, and we immediately encountered blood clot confirming our suspicion of placental abruption. The uterine incision was extended bilaterally with blunt dissection. The amniotic sac was entered, and the face was encountered. The vertex was elevated up into the incision with some difficulty due to how low the baby's head was. However, we were able to maneuver it up into the incision, and this viable male was delivered. Cord was doubly clamped and cut. Baby was suctioned and stimulated, was noted to be limp and pale at delivery but did have a heart rate. Dr. Sow carried him over to the warm for further resuscitation. Time of was 9:22. His scores were noted to be 2, 4, and 8 at one, five, and ten minutes respectively, and he responded well to resuscitation. weight is currently pending. weight later found to be 3940g (8lb 11oz). hmb A cord blood sample was obtained. The placenta was removed and later inspected and found to have some adherent blood clot and a marginal cord insertion. It otherwise appeared intact. The uterus was wiped clean and dry, and the incision edges were grasped with Duque forceps. The uterine incision was closed with running locking #1 Vicryl suture. A second imbricating layer was placed with excellent results. The incision was examined and found to be dry. The Rupert retractor was removed after irrigation. The uterine incision was once again examined and found to be hemostatic. Gutters were clear. Maternal organs appeared within normal limits. The peritoneum was closed with a running Vicryl suture. The fascia was closed with a PDS loop suture with excellent results. The skin was closed with rosangela. The patient tolerated the procedure well, and there were no intraoperative complications. She continued to drain urine throughout with slight blood tinge during middle of the procedure, which was clearing by the end. ESTIMATED BLOOD LOSS: 400 mL. She received 2g Ancef preoperative antibiotic and Pitocin IV following delivery of the placenta per protocol. Fundus was firming up nicely. Sponge and instrument counts were correct. A time-out was performed in my presence. MODL /[id number] CYNTHIA
[2019-12-04] MEDS: Ketorolac 30 MG/ML SDV IVPUSH SCH ×2 (16:39→22:11)
[2019-12-04] MEDS: ceFAZolin 1 GM in Premix Bag 1 BAG IV SCH (16:42)
[2019-12-04] MEDS: Docusate Sodium 100 MG Cap PO PRN (22:12)
[2019-12-05] MEDS: ceFAZolin 1 GM in Premix Bag 1 BAG IV SCH ×2 (00:28→08:36)
[2019-12-05] MEDS: HYDROmorphone 1 MG/ML Syringe IVPUSH PRN ×2 (01:10→06:04)
[2019-12-05] MEDS: Ketorolac 30 MG/ML SDV IVPUSH SCH (04:03)
[2019-12-05] MEDS: Simethicone 80 MG Tab.Chew PO SCH ×3 (08:34→17:35)
[2019-12-05] MEDS: Prenatal Multivitamin with Calcium/Folic Acid/Iron Tab PO SCH ×2 (08:35→08:57)
[2019-12-05] MEDS: Docusate Sodium 100 MG Cap PO PRN ×2 (08:35→19:46)
[2019-12-05] MEDS: Acetaminophen/oxyCODONE 325-5 MG Tab PO PRN ×4 (08:35→20:17)
--- NOTE | 2019-12-05 11:38 | PCM.SN ---
- Free Text/Narrative Note: DOS: 12-05-2019 POD/PPD #1 Bertha is doing well following emergent PLTCS yesterday. anesthesia has resolved. yates catheter is out and she is voiding well. no hematuria or dysuria. no nausea or vomiting. eating well. ambulating without difficulty. nursing the baby well. she has no new concerns today. fundus firm. flow as expected. VSS. afebrile. HGB 10.6 PLT 90 WBC WNL will continue to follow recheck labs Saturday12-07-2019 all questions answered for this delightful couple. hmb
[2019-12-05] MEDS: Ibuprofen 800 MG Tab PO PRN ×2 (12:33→20:17)
[2019-12-06] MEDS: Acetaminophen/oxyCODONE 325-5 MG Tab PO PRN ×5 (00:19→21:12)
[2019-12-06] MEDS: Simethicone 80 MG Tab.Chew PO SCH ×5 (06:14→21:10)
[2019-12-06] MEDS: Ibuprofen 800 MG Tab PO PRN ×2 (06:16→17:11)
[2019-12-06] MEDS: Prenatal Multivitamin with Calcium/Folic Acid/Iron Tab PO SCH (09:52)
[2019-12-06] MEDS: Docusate Sodium 100 MG Cap PO PRN (09:52)
--- NOTE | 2019-12-06 13:56 | PCM.SN ---
- Free Text/Narrative Note: DOS: 12-06-2019 POD #2/ PPD #2 Doing very well today. nursing going well. eating well, no nausea or vomiting. has not had a bowel movement yet. voiding well. ambulating without difficulty. incision looks excellent. has showered. Afebrile, VSS depression scale low @ 2. will continue to follow closely. will recheck CBC tomorrow morning, jasen for PLTs Plan discharge home tomorrow morning. happy with plan and care today. b
[2019-12-07] MEDS: Ibuprofen 800 MG Tab PO PRN (02:50)
[2019-12-07] MEDS: Acetaminophen/oxyCODONE 325-5 MG Tab PO PRN ×2 (02:50→08:29)
--- NOTE | 2019-12-07 04:08 | DISCH ---
FINAL DIAGNOSES: 1. A 29-year-old, G3, now P2-0-1-2 at 39-4/7 weeks' gestation, delivery by primary low-transverse section for placental abruption. Persistent left occipitoposterior presentation with bradycardia and intolerance to labor. 2. Gestational thrombocytopenia. 3. O-positive blood type. 4. Group B strep positive. Received prophylaxis. FINDINGS: This delightful 29-year-old G3, P 1, presented at 39-4/7 weeks' gestation in active labor with cervix 6 cm dilated with a bulging bag of fluid. She progressed on fairly rapidly in labor, and on my arrival had a bulging bag of fluid and 9+ cm dilated. Artificial rupture of membranes was carried out with copious amounts of clear fluid. However, following that, she began to have bright red bleeding per vagina. The baby was noted to be in an LOP position. Please see her admission H and P and notes for details. Due to intolerance to the situation, we called for surgery team to come in for an emergent section. While waiting for them, we attempted a vacuum- assisted vaginal delivery; however, that was unsuccessful. We subsequently went down for emergent section, confirming the left occipitoposterior position as expected with placental abruption, delivering a viable 8 pounds 11.3 ounces male infant with scores of 2, 4, and 8 at one, five, and ten minutes respectively. He responded very well to resuscitation and has done well during his entire nursery course. Mom did well postop. She had general anesthesia. Her anesthesia has resolved, and she has been ambulating without difficulty. Her Moon catheter was removed, and she is voiding well. Her bowel and bladder function have returned. No nausea and vomiting. She is eating without difficulty. She is nursing, and that is going well, and her milk supply has increased. She has remained afebrile with stable vital signs. Her fundus has remained firm and her flow has been within normal limits, and she has had no significant peripheral edema. No signs of preeclampsia. Her platelet count was 114 on arrival and 90 on the first postop check. Her discharge count will be done today, and discharge CBC is pending. She will go home on postop day #3. Her incision is healing well with no sign of infection or dehiscence. She will be discharged home in good condition with routine postop and orders. Will follow up in 1 week for staple removal and sooner with any problems. Her medications will include her vitamins, iron b.i.d., her Percocet 5/325 one q.i.d. p.r.n. discomfort with prescription given for 28 tablets. She has a breast pump at home. She will use her ibuprofen and stool softener as needed. All of her questions were answered. [facility] /[id number]
[2019-12-07] MEDS: Prenatal Multivitamin with Calcium/Folic Acid/Iron Tab PO SCH (08:28)
[2019-12-07] MEDS: Simethicone 80 MG Tab.Chew PO SCH (08:31)
[2019-12-07] MEDS: Docusate Sodium 100 MG Cap PO PRN (08:32)
== END 2019-12-07 12:30 | disposition home or self-care (01) | DRG 788 ==
LOC: DL.OBCHECK 05:22 → DL.OB 06:15 → OBSVTOIN 09:22 → DL.OB 09:22
PROVIDERS: ADMIT Family Medicine; ATTEND Family Medicine
PROC: 10D00Z1 Extraction of Products of Conception, Low, Open Approach (ICD-10-PCS; principal; 2019-12-04)
PROC: 10D07Z6 Extraction of Products of Conception, Vacuum, Via Natural or Artificial Opening (ICD-10-PCS; 2019-12-04)
PROC: 00HU33Z Insertion of Infusion Device into Spinal Canal, Percutaneous Approach (ICD-10-PCS; 2019-12-04)
PROC: 3E0R3BZ Introduction of Anesthetic Agent into Spinal Canal, Percutaneous Approach (ICD-10-PCS; 2019-12-04)
PROC: 10907ZC Drainage of Amniotic Fluid, Therapeutic from Products of Conception, Via Natural or Artificial Opening (ICD-10-PCS; 2019-12-04)
DX: O45.93 Premature separation of placenta, unspecified, third trimester (principal); Z3A.39 39 weeks gestation of pregnancy; Z37.0 Single live birth; O32.8XX0 Maternal care for other malpresentation of fetus, not applicable or unspecified; O32.4XX0 Maternal care for high head at term, not applicable or unspecified; O99.824 Streptococcus B carrier state complicating childbirth; O36.8390 Maternal care for abnormalities of the fetal heart rate or rhythm, unspecified trimester, not applicable or unspecified
CPT/HCPCS: 36415; 51701; 85025; 85027; A9270-GY; J0171; J0330; J0690; J1170; J1885; J2250; J2405; J2540; J2590; J2704; J3010; J3490; J7050; J7120